=== PATIENT | female | born 1985 | race Caucasian/White ===

== ENCOUNTER 2016-07-13 05:27 | Inpatient (IN) ==
[2016-07-13] MEDS: LACTATED RINGERS 1,000 ML IV SCH ×4 (06:00→21:44)
[2016-07-13] MEDS ORDERED: FAMOTIDINE 20 MG/2 ML VIAL IV ONE (06:02)
[2016-07-13] MEDS ORDERED: ceFAZolin 2,000 MG in PREMIX 1 EACH IV ONE (06:02)
[2016-07-13] MEDS ORDERED: CITRIC ACID/SODIUM CITRATE 30 ML UDCUP PO ONE (06:02)
[2016-07-13] MEDS ORDERED: OXYTOCIN/LR 20 UNIT/1,000 ML BAG IV ONE ×3 (06:27→08:19)
[2016-07-13 06:46] LABS: Basophils % 0.2 % (0.0-0.8); Eosinophils # 0.1 10*3/uL (0.0-0.87); Eosinophils % 0.9 % (0.00-10.9); Hemoglobin 9.8 GM/DL (12.0-16.0); Immature Granulocytes Absolute 0.16 #; Lymphocytes # 2.8 10*3/uL (1.4-4.0); Lymphocytes % 18.2 % (21.3-54.2); Mean Corpuscular HGB Conc 32.7 GM/DL (32-36); Mean Corpuscular Hemoglobin 29 PG (27-34); Mean Corpuscular Volume 89.6 FL (87-102); Mean Platelet Volume 10.7 FL (9.6-12.0); Monocytes % 6.6 % (1.7-12.7); Neutrophils # 11.4 10*3/uL (1.4-7.4); Neutrophils % 73.1 % (38.7-73.9); Platelet Count 299 T/CUMM (130-400); Red Blood Count 3.35 MC/CUMM (3.8-5.5); Red Cell Distribution Width 15.1 % (9.3-17.3); White Blood Count 15.6 T/CUMM (4-12)
--- NOTE | 2016-07-13 07:03 | OB/GYN History & Physical ---
History of Present Illness Chief complaint: at 39 weeks previous 2 smoker History of present illness: Ms. Joshua is a 30 year old female 3 para 2 previous 2 at 39 weeks estimated gestational age admitted for a repeat electively. Patient has been followed with serial NSTs since 32 weeks which have been reactive and reassuring. Ultrasound estimated weight on 06/27/2016 was 7 lbs. 4 oz. Presentation is confirmed vertex and ADI is normal Home Medications Medication Instructions Recorded Confirmed Type Multivitamin () [ 1 tablet PO DAILY 07/13/16 07/13/16 History Vitamin] Allergies Allergy/AdvReac Type Severity Reaction Status Date / Time No Known Allergies Allergy Verified 07/13/16 06:02 12 point system: reviewed and no additional remarkable complaints except as stated Medical,Surgical,& Family Hx - Medical History HEENT: History of: HEENT Problems (had rhinoplasty d/t sinuses) - Surgical History HEENT Surgeries: Surgical HX of: Tonsilectomy & Adenoidectomy Reproductive Surgeries: Surgical HX of;: Section - Family History Family History: Reports;: Family Cancer (mother-breast; pgf-lung), Family Hypertension (father) Denies;: Family Anesthesia Reaction, Family Diabetes, Family Heart Disease, Family Hematology - Social History Smoking Status: Current every day smoker Frequency of Alcohol Use: None 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 - Constitutional General appearance: normal weight, no acute distress - Head Head exam: Present: normal inspection, normocephalic, atraumatic - Respiratory Respiratory exam: Present: clear to auscultation bilaterally - Breast Breasts: as per HPI Menstruation: as per HPI - Cardiovascular Cardiovascular exam: Present: regular rate and rhythm - GI/Abdominal GI/Abdominal exam: Present: normal bowel sounds - Extremities Exam Extremities exam: Present: normal inspection, normal capillary refill - Back Exam Back exam: Present: normal inspection - Neurological Exam Neurological exam: Present: alert, oriented X3 - Psychiatric Psychiatric exam: Present: normal affect, normal mood - Skin Skin exam: Present: normal color, warm Assessment and Plan (1) with 39 completed weeks gestation Status: Acute Current Visit: Yes (2) Previous section Status: Acute Current Visit: Yes (3) Smoker Status: Acute Current Visit: Yes Results - Labs CBC & BMP: 07/13/16 06:39
[2016-07-13] MEDS ORDERED: PHENYLEPHRINE 1 MG/10 ML SYRINGE IV ONE (07:15)
[2016-07-13] MEDS ORDERED: ONDANSETRON 4 MG/2 ML VIAL ONE (07:15)
[2016-07-13] MEDS ORDERED: WITCH HAZEL PADS 100/JAR TOP PRN (08:19)
[2016-07-13] MEDS ORDERED: oxyCODONE/ACETAMINOPHEN 5-325 MG TABLET PO PRN (08:19)
[2016-07-13] MEDS ORDERED: BISACODYL 10 MG SUPP RECTAL PRN (08:19)
[2016-07-13] MEDS ORDERED: RHO(D) IMMUNE GLOBULIN 300 MCG SYRINGE IM ONE (08:19)
[2016-07-13] MEDS ORDERED: ONDANSETRON 4 MG/2 ML VIAL IV PRN (08:19)
[2016-07-13] MEDS ORDERED: DIPH/TET/ACEL PERT BOOSTER VACCINE 0.5 ML VIAL IM ONE (08:19)
[2016-07-13] MEDS ORDERED: BENZOCAINE 20%/MENTHOL 0.5% SPRAY 56 GM CAN TOP PRN (08:19)
[2016-07-13] MEDS ORDERED: LANOLIN 50% CREAM 0.3 OZ TUBE TOP PRN (08:19)
[2016-07-13] MEDS ORDERED: HYDROCORTISONE 2.5% RECTAL CREAM 30 GM TUBE TOP PRN (08:19)
[2016-07-13] MEDS ORDERED: MEASLES/MUMPS/RUBELLA VACCINE 0.5 ML VIAL SUBCUT ONE (08:19)
[2016-07-13] MEDS ORDERED: ACETAMINOPHEN 325 MG TABLET PO PRN (08:19)
--- NOTE | 2016-07-13 08:19 | Operative Note ---
Date of procedure: 07/13/16 Pre-op diagnosis: at 39 weeks previous 2 smoker Post-op diagnosis: same Procedure: This is Dr. Mccain dictating operative note: Preoperative diagnosis intrauterine intrauterine at [39] weeks 2. Previous 2 3. Smoker Postoperative diagnosis same Procedure repeat low transverse section Surgeon Dr. Mccain Anesthesia spinal Findings liveborn female unweighed Complications none Estimated blood loss [400] mL Disposition patient to recovery room in [stable] condition. to nursery in [stable] condition Operative description: After the risks benefits and alternatives were explained to the patient in detail and informed consent was obtained, the patient was taken to the operating room where she was placed in the supine position. After achieving appropriate anesthesia the abdomen was prepped and draped in the usual sterile fashion. A Crowe catheter was placed without difficulty. After the appropriate time out and after adequate anesthesia was ascertained a Pfannenstiel skin incision was made and carried down through the subcutaneous tissue down to the fascia. The fascia was nicked in the midportion and undermined and incised both laterally and cephalad using sharp dissection with the curved Crum scissors. 2 Tracey clamps were used to elevate the rectus fascia superiorly which was bluntly and sharply dissected away from the rectus muscle below. This was repeated inferiorly. The rectus muscles were then bluntly in the midline the peritoneum identified grasped with 2 curved hemostats and entered sharply using the curved Metzenbaum scissors. A bladder blade was then placed in the pelvis and a bladder flap was created off the lower uterine segment using sharp dissection with the Metzenbaum scissors. The bladder blade was then repositioned. A transverse incision was made across the lower uterine segment down to the amnion. Entry into the amnion revealed [ clear] amniotic fluid. The uterine incision was then extended laterally using bilateral finger fractionation. Upon palpation the presenting part was [vertex ] which was gently elevated out of the pelvis and delivered onto the abdominal wall using appropriate fundal pressure. The 's nose and oropharynx were bulb and DeLee suctioned and the had spontaneous cry delivery. The cord was doubly clamped and cut and the infant was handed over to the team for care. Cord blood was obtained. The placenta was delivered manually and IV Pitocin antibiotics and Zofran were begun. The uterus was then exteriorized and placed in a wet laparotomy sponge. 2 fingers wrapped around a wet laparotomy sponge were used to remove all residual membranes from the uterine cavity. The uterus was then closed in 2 layers. The first layer of myometrium was closed with #1 Monocryl suture in an inner locking fashion beginning at both angles and overlapping slightly in the midline. The second layer of myometrium was closed with #1 Monocryl suture in a running imbricating stitch beginning at the right angle and continuing the length of the uterine incision. Hemostasis was noted to be excellent. The posterior cul-de-sac was then irrigated and cleansed with a wet laparotomy sponge and the uterus was placed back in the abdominal cavity. Both pericolic gutters were then irrigated and cleansed with a wet lap sponge. The uterine incision was then re-irrigated and again noted to be hemostatic. All counts were noted to be correct. The subcutaneous tissue was then closed using 3-0 Vicryl suture in a running fashion. The subfascial area was made hemostatic using electrocautery and closed with #1 PDS suture in a running fashion beginning at both angles and overlapping slightly in the midline. The subcutaneous tissue was irrigated and made hemostatic using electrocautery and closed with 2-0 Vicryl suture in a running fashion and the skin was closed with wide skin jaelyn and a sterile pressure bandage was applied to the wound. All sponge needle and instrument counts were correct -3 at the end of the procedure. The patient's urine was [ clear] both at the beginning in the end of the procedure. The patient was taken to the recovery room in stable condition Anesthesia: spinal Surgeon / Physician: Mohinder Mccain Estimated blood loss: other (400) Specimens: none sent Condition: stable Disposition: floor Results - Labs CBC & BMP: 07/13/16 06:39 Discharge Plan - Discharge Medications No Action Multivitamin () [ Vitamin] 1 tablet PO DAILY - Follow Up or Referral - Forms/Instructions
[2016-07-13 08:40] LABS: Apearance,Urine CLEAR (Clear); Bilirubin,Urine Negative (Negative); Blood, Urine Negative (Negative); Glucose,Urine (UA) Negative (Negative); Ketones,Urine Negative (Negative); Nitrite,Urine Negative (Negative); Protein,Urine Negative; RBC,Urine 1 /HPF (0-4); Squamous Epithelial Cell,Urine Occasional /HPF (0-10); Urine Color Straw (Yellow); Urine Specific Gravity 1.003 (1.001-1.035); Urine Urobilinogen < 2.0 EU/DL (0.2-1.0); WBC,Urine <1 /HPF (0-6)
[2016-07-13] MEDS ORDERED: fentaNYL 100 MCG/2 ML VIAL ONE (09:09)
[2016-07-13] MEDS ORDERED: ePHEDrine 50 MG/ML AMP ONE (09:10)
[2016-07-13] MEDS ORDERED: MORPHINE 10 MG/10 ML VIAL ONE (09:10)
[2016-07-13] MEDS ORDERED: LACTATED RINGERS 1,000 ML IV ONE (09:15)
[2016-07-13] MEDS: oxyCODONE/ACETAMINOPHEN 5-325 MG TABLET PO PRN ×2 (12:06→21:36)
[2016-07-13] MEDS: IBUPROFEN 800 MG TABLET PO PRN (12:06)
[2016-07-13] MEDS: MULTIVITAMIN (PRENATAL) TABLET PO SCH (14:53)
[2016-07-13] MEDS: DOCUSATE SODIUM 100 MG CAPSULE PO SCH (21:31)
[2016-07-13] MEDS ORDERED: diphenhydrAMINE 50 MG/1 ML VIAL IV PRN (21:32)
[2016-07-13] MEDS ORDERED: diphenhydrAMINE 50 MG/1 ML VIAL ONE (21:34)
[2016-07-14] MEDS: oxyCODONE/ACETAMINOPHEN 5-325 MG TABLET PO PRN ×3 (04:23→18:24)
[2016-07-14] MEDS: IBUPROFEN 800 MG TABLET PO PRN ×3 (04:23→18:24)
[2016-07-14 06:45] LABS: Basophils % 0.2 % (0.0-0.8); Eosinophils # 0.1 10*3/uL (0.0-0.87); Eosinophils % 0.6 % (0.00-10.9); Hematocrit 30.1 VOL% (35.7-47.0); Hemoglobin 9.7 GM/DL (12.0-16.0); Immature Granulocytes % 0.6 %; Immature Granulocytes Absolute 0.09 #; Lymphocytes # 2.3 10*3/uL (1.4-4.0); Lymphocytes % 14.3 % (21.3-54.2); Mean Corpuscular HGB Conc 32.2 GM/DL (32-36); Mean Corpuscular Hemoglobin 29 PG (27-34); Mean Corpuscular Volume 89.1 FL (87-102); Mean Platelet Volume 10.6 FL (9.6-12.0); Monocytes % 5.9 % (1.7-12.7); Neutrophils # 12.7 10*3/uL (1.4-7.4); Neutrophils % 78.4 % (38.7-73.9); Platelet Count 287 T/CUMM (130-400); Red Blood Count 3.38 MC/CUMM (3.8-5.5); Red Cell Distribution Width 15.3 % (9.3-17.3); White Blood Count 16.1 T/CUMM (4-12)
--- NOTE | 2016-07-14 07:17 | OB/GYN Progress Note ---
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 She is tolerating her diet. She is alert and oriented -3 Cardiovascular regular rate and rhythm Lungs clear to auscultation Abdomen soft with appropriate tenderness and bowel sounds are present and her incision is dry no bleeding Is good refill HEENT shows pink conjunctiva assessment 1 day of surgery doing well Plan continue present management with expected DC in a.m. 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
--- NOTE | 2016-07-14 07:19 | Discharge Summary ---
Hospital Course - Hospital Course Hospital Course: Postoperatively the patient did well. She had quick return of bowel and bladder function. She remained afebrile and normotensive throughout her hospitalization. She is consequently discharged on postoperative day #2 on a regular diet. Her discharge medication included Percocet for pain. She was given bleeding and infection cautions instructed maintain pelvic rest and limited activity and instructed to return office in 1 week for follow-up Diagnosis - Discharge Diagnosis (1) with 39 completed weeks gestation Status: Acute (2) Previous section Status: Acute (3) Smoker Status: Acute Discharge Plan - Discharge Data Disposition: Disch To Home/Self Care Condition at Discharge: Stable Discharge Diet: regular diet Activity: increase activity as tolerated, no lifting, other (Pelvic rest) Hygiene: may shower Weight Bearing at Discharge: full weight bearing Driving: not until seen by doctor Contact your physician if you experience:: fever over 101, Difficulty voiding, Redness or swelling, Nausea/Vomiting, Shortness of breath, Bleeding, pain uncontrolled by pain medications - Discharge Medications New Acetaminophen Tab [Tylenol Tab] 650 mg PO Q6H PRN tablet PRN Reason: Fever > 100.4 Or Headache oxyCODONE/ACETAMINOPHEN 5-325 [Percocet 5-325] 1 tablet PO Q6H PRN #20 tablet PRN Reason: Pain Severe (8-10) Continue Multivitamin () [ Vitamin] 1 tablet PO DAILY - Follow Up or Referral Follow Up: Mohinder Mccain MD [Physician] - 2 Weeks - Forms/Instructions Exam - Constitutional Vitals: Period Temp Pulse Resp BP Sys/Campos Pulse Ox Last 24 Hr 96.9 F-98.6 F 65-75 18-20 101-120/56-75 98-99 Discharge Results Procedures and tests throughout hospitalization: Pending Orders 07/14/16 06:37 Rhogam Workup Routine Labs on day of discharge: Labs from last 24 hours 07/14/16 07/13/16 07/13/16 06:37 07:35 06:39 WBC 16.1 H RBC 3.38 L Hgb 9.7 L Hct 30.1 L MCV 89.1 MCH 29 MCHC 32.2 RDW 15.3 Plt Count 287 MPV 10.6 Neut % (Auto) 78.4 H Lymph % (Auto) 14.3 L [place] % (Auto) 5.9 Eos % (Auto) 0.6 Baso % (Auto) 0.2 Neut # (Auto) 12.7 H Lymph # (Auto) 2.3 [place] # (Auto) 1.0 H Eos # (Auto) 0.1 Baso # (Auto) 0.0 Immature Gran % 0.6 Nucleated RBC % 0.0 Immature Gran # 0.09 Nucleated RBCs # 0.00 Urine Color Straw Urine Appearance Clear Urine pH 7.0 Ur Specific [place] 1.003 Urine Protein Negative Urine Glucose (UA) Negative Urine Ketones Negative Urine Blood Negative Urine Nitrate Negative Urine Bilirubin Negative Urine Urobilinogen < 2.0 H Urine Leukocytes Negative Urine RBC 1 Urine WBC <1 Ur Squamous Epith Cells Occasional Ur Culture Indicated? Not indicated Treponema pallidum IgG Blood Type A NEGATIVE Antibody Screen Positive Antibody Identification Anti-D 07/13/16 06:39 WBC RBC Hgb Hct MCV MCH MCHC RDW Plt Count MPV Neut % (Auto) Lymph % (Auto) [place] % (Auto) Eos % (Auto) Baso % (Auto) Neut # (Auto) Lymph # (Auto) [place] # (Auto) Eos # (Auto) Baso # (Auto) Immature Gran % Nucleated RBC % Immature Gran # Nucleated RBCs # Urine Color Urine Appearance Urine pH Ur Specific [place] Urine Protein Urine Glucose (UA) Urine Ketones Urine Blood Urine Nitrate Urine Bilirubin Urine Urobilinogen Urine Leukocytes Urine RBC Urine WBC Ur Squamous Epith Cells Ur Culture Indicated? Treponema pallidum IgG Nonreactive Blood Type Antibody Screen Antibody Identification DS: Provider Date of admission: 07/13/16 06:02 Primary care physician: . No PCP Attending physician on admission: Juan M Alejandro Consults: 07/13/16 06:02 Consult to Anesthesiology [CONS] Routine Consulting Provider: Reason for Anesthesiology: Pre-op Clearance 07/13/16 08:19 Consult to Upper Leather Cutter [CONS] Routine Consult Upper Leather Cutter: Breast Feeding Discharging clinician: Juan M Alejandro Expected date of discharge: 07/15/16
[2016-07-14] MEDS: MULTIVITAMIN (PRENATAL) TABLET PO SCH (08:16)
[2016-07-14] MEDS: DOCUSATE SODIUM 100 MG CAPSULE PO SCH ×2 (08:16→21:00)
[2016-07-14] MEDS ORDERED: RHO(D) IMMUNE GLOBULIN 300 MCG SYRINGE IM ONE (18:03)
[2016-07-14] MEDS ORDERED: MAGNESIUM HYDROXIDE SUSP 30 ML UDCUP PO PRN (20:25)
[2016-07-15] MEDS: IBUPROFEN 800 MG TABLET PO PRN ×2 (00:27→09:14)
[2016-07-15] MEDS: oxyCODONE/ACETAMINOPHEN 5-325 MG TABLET PO PRN (00:28)
[2016-07-15 07:50] VITALS: BP 119/67
[2016-07-15] MEDS: DOCUSATE SODIUM 100 MG CAPSULE PO SCH (09:14)
[2016-07-15] MEDS: MULTIVITAMIN (PRENATAL) TABLET PO SCH (09:14)
== END 2016-07-15 12:25 | disposition home or self-care (01) | DRG 766 ==
LOC: N.LDOUT 05:27 → N.LD 05:37 → N.OB 11:57
PROVIDERS: ADMIT Specialist; ATTEND Specialist
PROC: LDCSECT (ICD-10-PCS; 2016-07-13 07:00)

== ENCOUNTER 2018-05-10 05:19 | Inpatient (IN) ==
[2018-05-10] MEDS ORDERED: FAMOTIDINE 20 MG/2 ML VIAL IV ONE (05:28)
[2018-05-10] MEDS ORDERED: CITRIC ACID/SODIUM CITRATE 30 ML UDCUP PO ONE (05:28)
[2018-05-10] MEDS ORDERED: ceFAZolin 2,000 MG in PREMIX 1 EACH IV ONE (05:28)
[2018-05-10 05:55] LABS: Basophils # 0.1 10*3/uL (0.0-0.2); Basophils % 0.3 % (0.0-0.8); Eosinophils # 0.1 10*3/uL (0.0-0.87); Eosinophils % 0.8 % (0.00-10.9); Hematocrit 32.4 VOL% (35.7-47.0); Hemoglobin 10.4 GM/DL (12.0-16.0); Immature Granulocytes % 0.5 %; Immature Granulocytes Absolute 0.08 #; Lymphocytes # 4.1 10*3/uL (1.4-4.0); Lymphocytes % 24.6 % (21.3-54.2); Mean Corpuscular HGB Conc 32.1 GM/DL (32-36); Mean Corpuscular Hemoglobin 28 PG (27-34); Mean Corpuscular Volume 86.4 FL (87-102); Mean Platelet Volume 11.4 FL (9.6-12.0); Monocytes # 0.8 10*3/uL (0.11-0.8); Neutrophils # 11.5 10*3/uL (1.4-7.4); Neutrophils % 68.8 % (38.7-73.9); Platelet Count 358 T/CUMM (130-400); Red Blood Count 3.75 MC/CUMM (3.8-5.5); Red Cell Distribution Width 14.9 % (9.3-17.3); White Blood Count 16.7 T/CUMM (4-12)
[2018-05-10] MEDS: LACTATED RINGERS 1,000 ML IV SCH ×2 (05:58→07:04)
[2018-05-10 06:14] LABS: Albumin 2.6 G/DL (3.4-5.0); Bilirubin,Total 0.4 MG/DL (0.2-1.0); Calcium 8.6 MG/DL (8.5-10.1); Osmolality,Calculated 271.8 MOS/KG (273-304); Potassium 3.7 MMOL/L (3.5-5.1); Total Protein 6.8 G/DL (6.4-8.3)
[2018-05-10] MEDS ORDERED: OXYTOCIN/LR 20 UNIT/1,000 ML BAG IV ONE ×2 (06:29→08:32)
[2018-05-10] MEDS ORDERED: BUPIVACAINE SPINAL 0.75% 2 ML AMP SPINAL ONE (06:50)
[2018-05-10] MEDS ORDERED: MEASLES/MUMPS/RUBELLA VACCINE 0.5 ML VIAL SUBCUT ONE (08:32)
[2018-05-10] MEDS ORDERED: oxyCODONE/ACETAMINOPHEN 5-325 MG TABLET PO PRN (08:32)
[2018-05-10] MEDS ORDERED: ONDANSETRON 4 MG/2 ML VIAL IV PRN (08:32)
[2018-05-10] MEDS ORDERED: BENZOCAINE 20%/MENTHOL 0.5% SPRAY 56 GM CAN TOP PRN (08:32)
[2018-05-10] MEDS ORDERED: RHO(D) IMMUNE GLOBULIN 300 MCG SYRINGE IM ONE (08:32)
[2018-05-10] MEDS ORDERED: LANOLIN 50% CREAM 0.3 OZ TUBE TOP PRN (08:32)
[2018-05-10] MEDS ORDERED: WITCH HAZEL PADS 100/JAR TOP PRN (08:32)
[2018-05-10] MEDS ORDERED: HYDROCORTISONE 2.5% RECTAL CREAM 30 GM TUBE TOP PRN (08:32)
[2018-05-10] MEDS ORDERED: ACETAMINOPHEN 325 MG TABLET PO PRN (08:32)
[2018-05-10] MEDS ORDERED: BISACODYL 10 MG SUPP RECTAL PRN (08:32)
[2018-05-10] MEDS ORDERED: DIPH/TET/ACEL PERT BOOSTER VACCINE 0.5 ML VIAL IM ONE (08:32)
[2018-05-10] MEDS ORDERED: MORPHINE 10 MG/10 ML VIAL ONE (08:41)
[2018-05-10] MEDS ORDERED: PHENYLEPHRINE 1 MG/10 ML SYRINGE IV ONE (08:41)
[2018-05-10] MEDS ORDERED: PROPOFOL 200 MG/20 ML VIAL IV ONE (08:41)
[2018-05-10 09:04] LABS: Apearance,Urine CLEAR (Clear); Bilirubin,Urine Negative (Negative); Blood, Urine Negative (Negative); Glucose,Urine (UA) Negative (Negative); Ketones,Urine 20 mg/dL (Negative); Mucus,Urine Few /LPF (Occasional); Nitrite,Urine Negative (Negative); Protein,Urine 30 MG/DL; RBC,Urine <1 /HPF (0-4); Squamous Epithelial Cell,Urine Occasional /HPF (0-10); Urine Color Yellow (Yellow); Urine Specific Gravity 1.021 (1.001-1.035); WBC,Urine 1 /HPF (0-6)
[2018-05-10] MEDS ORDERED: hydrOXYzine HCL 25 MG/1 ML VIAL IM PRN (10:11)
[2018-05-10] MEDS ORDERED: HYDROmorphone 2 MG/1 ML VIAL IV PRN (10:11)
[2018-05-10] MEDS ORDERED: diphenhydrAMINE 50 MG/1 ML VIAL IV PRN (10:11)
[2018-05-10] MEDS: ceFAZolin 1,000 MG in SYRINGE 1 EACH IV SCH (15:16)
[2018-05-10] MEDS: oxyCODONE/ACETAMINOPHEN 5-325 MG TABLET PO PRN (15:18)
[2018-05-11] MEDS: ceFAZolin 1,000 MG in SYRINGE 1 EACH IV SCH (00:17)
[2018-05-11] MEDS: oxyCODONE/ACETAMINOPHEN 5-325 MG TABLET PO PRN ×4 (00:21→21:34)
[2018-05-11] MEDS: IBUPROFEN 800 MG TABLET PO PRN (00:22)
[2018-05-11] MEDS ORDERED: ceFAZolin 1,000 MG in SYRINGE 1 EACH IV SCH (00:30)
[2018-05-11 07:08] LABS: Basophils % 0.2 % (0.0-0.8); Eosinophils # 0.3 10*3/uL (0.0-0.87); Eosinophils % 1.8 % (0.00-10.9); Hematocrit 30.9 VOL% (35.7-47.0); Hemoglobin 9.5 GM/DL (12.0-16.0); Immature Granulocytes % 0.6 %; Lymphocytes % 12.2 % (21.3-54.2); Mean Corpuscular HGB Conc 30.7 GM/DL (32-36); Mean Corpuscular Hemoglobin 27 PG (27-34); Mean Corpuscular Volume 87.8 FL (87-102); Mean Platelet Volume 10.8 FL (9.6-12.0); Monocytes % 5.8 % (1.7-12.7); Neutrophils # 13.2 10*3/uL (1.4-7.4); Neutrophils % 79.4 % (38.7-73.9); Platelet Count 320 T/CUMM (130-400); Red Blood Count 3.52 MC/CUMM (3.8-5.5); Red Cell Distribution Width 15.1 % (9.3-17.3); White Blood Count 16.6 T/CUMM (4-12)
[2018-05-11] MEDS ORDERED: SIMETHICONE CHEW 80 MG TABLET PO PRN (08:38)
[2018-05-11] MEDS: MAGNESIUM HYDROXIDE SUSP 30 ML UDCUP PO PRN ×2 (08:58→21:34)
[2018-05-11] MEDS: DOCUSATE SODIUM 100 MG CAPSULE PO SCH ×2 (08:58→21:34)
[2018-05-11] MEDS ORDERED: RHO(D) IMMUNE GLOBULIN 300 MCG SYRINGE IM ONE (11:30)
[2018-05-12] MEDS: IBUPROFEN 800 MG TABLET PO PRN (07:03)
[2018-05-12] MEDS: oxyCODONE/ACETAMINOPHEN 5-325 MG TABLET PO PRN (07:03)
[2018-05-12 07:23] VITALS: BP 128/80
[2018-05-12] MEDS: MAGNESIUM HYDROXIDE SUSP 30 ML UDCUP PO PRN (08:42)
[2018-05-12] MEDS: DOCUSATE SODIUM 100 MG CAPSULE PO SCH (08:43)
== END 2018-05-12 11:40 | disposition home or self-care (01) | DRG 785 ==
LOC: N.LDOUT 05:19 → N.LD 05:21 → N.OB 11:53
PROVIDERS: ADMIT Specialist; ATTEND Specialist